=== PATIENT | female | born 1985 | race Two or more races ===

== ENCOUNTER 2016-06-20 08:07 | Emergency (ER) | payer OTHER ==
[~2016-06-20] VITALS: Ht 162.6 cm; Wt 48.1 kg
[2016-06-20 08:15] VITALS: BP 134/82
[2016-06-20] MEDS ORDERED: AMOX875T PO (08:31)
[2016-06-20] MEDS ORDERED: IBUP-1007 PO (08:31)
[2016-06-20] MEDS ORDERED: LIDO20SO PO (08:31)
--- NOTE | 2016-06-20 08:32 | PHYS DOC ---
Past Medical History Past Medical History: No Pertinent History Past Surgical History: No Surgical History Alcohol Use: Occasionally Drug Use: None Adult General Chief Complaint Chief Complaint: SORE THROAT [facility] HPI Patient is a 31 year old female with no significant medical history who presents with a sore throat and left ear pain that began yesterday. Patient denies any coughing or congestion but states she's had subjective fevers. Review of Systems Review of Systems Constitutional: Subjective fevers Eyes: Denies change in visual acuity, redness, or eye pain [] HENT: Left ear pain and sore throat [] Respiratory: See history of present illness Cardiovascular: No additional information not addressed in HPI [] GI: Denies abdominal pain, nausea, vomiting, bloody stools or diarrhea [] : Denies dysuria or hematuria [] Musculoskeletal: Denies back pain or joint pain [] Integument: Denies rash or skin lesions [] Neurologic: Denies headache, focal weakness or sensory changes [] Endocrine: Denies polyuria or polydipsia [] Allergies Allergies Allergies Coded Allergies Type Severity Reaction Last Updated Verified No Known Drug Allergies 06/20/16 No Physical Exam Physical Exam Constitutional: Well developed, well nourished, no acute distress, non-toxic appearance. [] HENT: Normocephalic, atraumatic, bilateral external ears normal, oropharynx moist, no oral exudates, nose normal. [] Left TM is mildly injected with small amount of cloudy fluid, right TM appears normal. Posterior pharynx with mild erythema no exudate. Patient's voice is very hoarse Eyes: PERRLA, EOMI, conjunctiva normal, no discharge. [] Neck: Normal range of motion, no tenderness, supple, no stridor. [] Cardiovascular:Heart rate regular rhythm, no murmur [] Lungs & Thorax: Bilateral breath sounds clear to auscultation [] Abdomen: Bowel sounds normal, soft, no tenderness, no masses, no pulsatile masses. [] Skin: Warm, dry, no erythema, no rash. [] Back: No tenderness, no CVA tenderness. [] Extremities: No tenderness, no cyanosis, no clubbing, ROM intact, no edema. [] Neurologic: Alert and oriented X 3, normal motor function, normal sensory function, no focal deficits noted. [] Psychologic: Affect normal, judgement normal, mood normal. [] Current Patient Data Vital Signs Vital Signs Date Time Temp Pulse Resp B/P Pulse Ox O2 Delivery O2 Flow Rate FiO2 06/20/16 08:15 98.1 82 18 98 Room Air 98.1 EKG EKG [] Radiology/Procedures Radiology/Procedures [] Course & Med Decision Making Course & Med Decision Making Pertinent Labs and Imaging studies reviewed. (See chart for details) Patient has left otitis media, laryngitis, and pharyngitis. Discharged with amoxicillin for 10 days. Tylenol /Motrin for pain no fever. Saltwater gargles encouraged. Provided return precautions. Follow-up with her own doctor in one week. Dragon Disclaimer Dragon Disclaimer This electronic medical record was generated, in whole or in part, using a voice recognition dictation system. Departure Departure Impression: Primary Impression: Otitis media Additional Impressions: Laryngitis, acute Pharyngitis, acute Fever Disposition: HOME, SELF-CARE Condition: STABLE Patient Instructions: Fever, Adult, Laryngitis, [id number], Otitis Media, Adult, Viral and Bacterial Pharyngitis Additional Instructions: You were seen for an ear infection, sore throat, and fever. Please take Tylenol every 4 hours and Motrin every 6 hours. Please push fluids. Use saltwater gargles as well for the sore throat. Ensure you complete your antibiotics. Come back to the emergency room if symptoms worsen or you and unable to swallow or breathe. Scripts Lidocaine Hcl (Lidocaine Hcl Viscous)20 Mg/1 Ml Solution5 Ml PO TID #100 ML Prov:MELQUIADES MAHAJAN [employer] 06/20/16 Ibuprofen 600 Mg Hiznfr092 Mg PO PRN Q6HRS PRN INFLAMMATION #30 TAB Prov:MELQUIADES MAHAJAN [employer] 06/20/16 Amoxicillin 875 Mg Tablet1 Tab PO BID #20 TAB Prov:MELQUIADES MAHAJAN [employer] 06/20/16 Problem Qualifiers Primary Impression: Otitis media Otitis media type: other nonsuppurative Laterality: left Chronicity: acute Recurrence: not specified as recurrent Qualified Code: H65.192 - Other acute nonsuppurative otitis media, left ear Additional Impressions: Pharyngitis, acute Pharyngitis/tonsillitis etiology: unspecified etiology Qualified Code: J02.9 - Acute pharyngitis, unspecified Fever Fever type: unspecified Qualified Code: R50.9 - Fever, unspecified FOSTERMELQUIADES COLÓN JUAN Jun 20, 2016 08:32
== END 2016-06-20 08:44 | disposition home or self-care (01) ==
LOC: ER 08:07
DX: H65.192 Other acute nonsuppurative otitis media, left ear (principal); J04.0 Acute laryngitis; J02.9 Acute pharyngitis, unspecified
CPT/HCPCS: 99283